=== PATIENT | male | born 1985 | race Caucasian/White ===

== ENCOUNTER 2020-12-18 19:55 | Emergency (ER) | payer OTHER, SELFPAY ==
[2020-12-18 20:19] VITALS: BP 143/86; PULSE 110; RESP 20; TEMP 37.1; O2SAT 98; BMI 36.5
--- NOTE | 2020-12-18 20:41 | HMH.EDUTC ---
[facility] [place] Disposition Clinical Impression: Cellulitis and abscess of leg Disposition: Home, Self-Care Condition on Discharge: Good Instructions: Trimethoprim/Sulfamethoxazole (Alternative Therapy), Cephalexin, Mupirocin, DI for Skin Abscess Additional Instructions: Do not cut on the abscess anymore and allow medication to work *Start antibiotic(s) immediately and be sure to take as ordered for the FULL length of time although you may be feeling better or start to see improvement in the next 24-48 hours *Monitor closely. Outlined redness so that you can monitor easier. Follow up immediately for new or worsening symptoms including but not limited to redness, swelling, streaking from site fever or chills. *Warm compress 15 minutes 3-4 times day *Never squeeze or pop these on your own. Seek immediate medical attention next time this occurs *Monitor Temp. Tylenol every 4 hours as needed and ibuprofen every 6 hours as needed (as long as your primary care doctor has told you that it is ok to take both. For fever, aches, pain. ER if no less that 101 despite Tylenol and ibuprofen Follow up with your family doctor/primary care physician in the next 48-72 hours if no improvement Call [facility] and make appointment with Dr Damian Go straight to the ER if any worsening of redness or swelling, fever chills, streaks coming down leg etc No bandaids over this wound Prescriptions: Sulfamethoxazole/Trimethoprim [Bactrim DS tablet] 1 each PO BID 10 Days #20 tab Transmission Status: Received by [facility] cephALEXin [cephALEXin 500mg capsule*] 500 mg PO Q6H 10 Days #40 cap Transmission Status: Received by [facility] Mupirocin Calcium [Mupirocin 2% Cream 15gm] 1 applicatio TP TID 10 Days #1 tube Transmission Status: Received by [facility] Referrals: PCP,No [Primary Care Provider] - As needed Tin Damian MD [Staff Physician] - As needed (Call office for appointment) Time of Disposition: 20:52 Medical Decision Making - [place] Inquiry Pt receiving controlled substance: No [place] was queried for this patient: No Vital Signs: 12/18/20 20:19 Temperature 98.7 F Temperature Source Tympanic Pulse Rate [Left Brachial] 110 H Respiratory Rate 20 Blood Pressure [Left Arm] 143/86 H Blood Pressure Mean [Left Arm] 105 Blood Pressure Source [Left Arm] Automatic Cuff 02 Sat by Pulse Oximetry 98 Oxygen Delivery Method Room Air Orders (Tests/Meds): ED MEDICATIONS Discontinued Medications Generic Name Dose Route Start Last Admin Trade Name Freq PRN Reason Stop Dose Admin Albuterol Sulfate 2 puffs 12/18/20 20:57 Albuterol-Hfa 90mcg/Puff Inhaler 8gm IH 01/17/21 20:56 Q4HP PRN Shortness Of Breath Albuterol Sulfate 2 puffs 12/18/20 21:03 12/18/20 21:10 Albuterol-Hfa 90mcg/Puff Inhaler 8gm IH 12/18/20 21:04 2 puffs ONCE ONE Administration Cephalexin HCl 500 mg 12/18/20 20:52 12/18/20 20:55 Cephalexin 500mg Capsule PO 12/18/20 20:53 500 mg ONCE ONE Administration Protocol Tetanus/Reduced Diphtheria/Acell Pertussis 0.5 ml 12/18/20 20:41 12/18/20 20:48 Tet/Diphth/Pert-Adult 0.5ml Syringe IM 12/18/20 20:42 0.5 ml .ONCE ONE Administration Trimethoprim/Sulfamethoxazole 1 each 12/18/20 20:52 12/18/20 20:55 Sulfa/Trimethoprim 1 Tablet PO 12/18/20 20:53 1 each ONCE ONE Administration Protocol - Physician Consults Physician Consulted: Rickie Time: 20:46 Reason -: Surgical Eval/Care Comment/Response: Discussed patient with Dr Damian and discussed treatment and patient agreed will leave wound open and Will place patient on oral bactrim DS, Keflex and mupirocin and have patient call office and follow up with Dr Damian next week in the clinic if any worsening return immediately to the ED or call the office [facility] [place] HPI - General Stated complaint: AO 12/18 lac R Leg Time Seen by Provider: 12/18/20 20:41 Mode of Arrival: Family Vehicle So
[2020-12-18 21:25] VITALS: BP 140/85; PULSE 100; RESP 20; TEMP 37
== END 2020-12-18 21:28 | disposition home or self-care (01) ==
PROVIDERS: Emergency Provider Nurse Practitioner
DX: L03.115 Cellulitis of right lower limb (principal); F17.290 Nicotine dependence, other tobacco product, uncomplicated; J45.909 Unspecified asthma, uncomplicated; Z23 Encounter for immunization; Z79.899 Other long term (current) drug therapy
CPT/HCPCS: 90471; 90715; 99202; G0463

== ENCOUNTER → 2021-06-11 11:55 | Outpatient (CLI) | payer OTHER, SELFPAY ==
--- NOTE | 2021-06-11 11:59 | XR_ITS ---
PROCEDURE: XR ANKLE LT MIN 3V CLINICAL INDICATION: ACUTE LT ANKLE PAIN COMPARISON: No exams were available for comparison FINDINGS: No fracture or dislocation. No lytic or blastic change. There is normal mineralization. The joint spaces are well-preserved. No significant degenerative/arthritic changes. No erosive changes evident. Other findings:None. IMPRESSION: No acute findings. Dictated by: Ry Viveros MD 06/11/2021 13:38 Ry Viveros MD in [place] 06/11/2021 13:38
== END ==
PROVIDERS: PCP Family Medicine; Visit Provider Nurse Practitioner Family
DX: M25.572 Pain in left ankle and joints of left foot (principal)
CPT/HCPCS: 73610

== ENCOUNTER 2022-08-05 16:10 | Emergency (ER) | payer OTHER, SELFPAY ==
[2022-08-05 16:11] VITALS: BP 99/59; PULSE 127; RESP 18; TEMP 37.3; O2SAT 95; BMI 34.9
[2022-08-05 16:20] VITALS: BMI 34.9
[2022-08-05 16:25] LABS: Coronavirus 19, PCR Not Detected (NotDetected); Influenza B, PCR Not Detected (NotDetected)
--- NOTE | 2022-08-05 16:29 | HMH.EDGENADL ---
Discharge Plan Disposition Patient Disposition: Home, Self-Care Condition: Good Prescriptions Prescriptions: No Action quetiapine 100 MG tablet 100 mg PO HS buspirone 10 MG tablet 10 mg PO DAILY escitalopram oxalate 5 MG tablet 5 mg PO DAILY sulfamethoxazole-trimethoprim 1 EACH tablet 1 each PO BID 10 Days Qty: 20 0RF cephalexin 500 MG capsule 500 mg PO Q6H 10 Days Qty: 40 0RF mupirocin calcium 15 GM cream 1 applicatio TP TID 10 Days Qty: 1 0RF Referrals Follow up/Referrals: Eliot Sanchez MD [Primary Care Provider] - See instructions Clinical Impressions Clinical Impression: Influenza, Asthma Instructions Patient Instructions: Asthma -- Adult, DI for Influenza -- Adult Discharge ED Provider: Uli Cox General Adult HPI General Chief complaint: Upper Respiratory Infection Stated complaint: SOB fever sore throat Time Seen by Provider: 08/05/22 16:20 History of Present Illness HPI narrative: Patient is a 37-year-old male with a past medical history of asthma requiring intubation twice who presents with concern for shortness of breath. He says that he did a televisit earlier today and got prescribed a Z-Lizandro and steroids but he says that he feels more short of breath and wheezy. He said he was concerned because he has been intubated in the past and did not want to have a bad exacerbation. He says that he has also felt fever and chills. He says he took a home COVID test which was negative. He says that his family members have recently been diagnosed with strep. He denies much sore throat but does state it feels scratchy and he also has a cough. He recently traveled and says that he got sick after this. Denies any chest pain. Denies any abdominal pain. Denies any nausea, vomiting, diarrhea. Related Data Home Medications Medication Instructions Recorded Confirmed buspirone 10 mg tablet 10 mg PO DAILY Anxiety 12/18/20 12/18/20 escitalopram oxalate 5 mg tablet 5 mg PO DAILY Depression 12/18/20 12/18/20 quetiapine 100 mg tablet 100 mg PO HS sleep 12/18/20 12/18/20 Previous Rx's Medication Instructions Recorded cephalexin 500 mg capsule 500 mg PO Q6H 10 days #40 caps 12/18/20 mupirocin calcium 2 % topical cream 1 applicatio TP TID 10 days #1 tube 12/18/20 sulfamethoxazole 800 1 each PO BID 10 days #20 tabs 12/18/20 mg-trimethoprim 160 mg tablet Allergies Allergy/AdvReac Type Severity Reaction Status Date / Time No Known Allergies Allergy Verified 12/18/20 20:29 [facility] Social History Smoking Status: Never smoker alcohol intake: current substance use type: marijuana current occupational status: employed Travel in the last 8 weeks: None household members: significant other ROS Obtained: Yes All systems reviewed & no additional complaints except as documented A 14 point review of system was obtained and otherwise negative except per HPI Physical Exam General General appearance: alert and in no apparent distress Head Head exam: atraumatic, normocephalic and normal inspection Eye Eye exam: Present normal appearance, PERRL and EOMI ENT ENT exam: Present normal exam, normal oropharynx, mucous membranes moist, TM's normal bilaterally and normal external ear exam Neck Neck exam: Present normal inspection, full ROM and trachea midline; Absent meningismus or lymphadenopathy Chest Chest inspection: Present normal inspection and symmetric chest wall rise; Absent tenderness Respiratory Respiratory exam: Present normal lung sounds bilaterally and wheezes; Absent respiratory distress Cardiovascular Cardiovascular exam: Present regular rate and normal rhythm; Absent JVD Abdominal Exam Abdominal exam: Present soft and normal bowel sounds; Absent distention, tenderness or guarding Extremities Exam Extremities exam: Present normal inspection, full ROM and normal capillary refill; Absent calf tenderness Back Exam Back exam: Present nor
--- NOTE | 2022-08-05 16:39 | XR_ITS ---
PROCEDURE INFORMATION: Exam: XR Chest Exam date and time: 08/05/2022 5:05 PM Age: 37 years old Clinical indication: Cough; Additional info: Asthma. Cough TECHNIQUE: Imaging protocol: Radiologic exam of the chest. Views: 1 view. COMPARISON: No relevant prior studies available. FINDINGS: Lungs: No evidence of pneumonia or interstitial edema. Pleural spaces: Unremarkable. No pleural effusion. No pneumothorax. Heart/Mediastinum: Unremarkable. No cardiomegaly. Bones/joints: Unremarkable. IMPRESSION: No evidence of pneumonia or interstitial edema.
[2022-08-05 16:52] LABS: Influenza A, PCR Detected (NotDetected)
[2022-08-05 17:21] VITALS: PULSE 110; PULSE 114
[2022-08-05 17:34] VITALS: BP 110/67; PULSE 78; RESP 20; TEMP 37.2; O2SAT 95
== END 2022-08-05 17:36 | disposition home or self-care (01) ==
PROVIDERS: Emergency Provider Student in an Organized Health Care Education/Training Program; PCP Family Medicine
DX: J10.1 Influenza due to other identified influenza virus with other respiratory manifestations (principal); R06.02 Shortness of breath; R50.9 Fever, unspecified; J45.909 Unspecified asthma, uncomplicated; Z20.822 Contact with and (suspected) exposure to COVID-19
CPT/HCPCS: 71045; 96372; 96374; 96375; 99284; C9803; J3475; U0003; U0005

== ENCOUNTER 2024-10-29 12:13 | Emergency (ER) | payer OTHER, SELFPAY ==
[2024-10-29 12:15] VITALS: BP 110/66; PULSE 89; RESP 18; TEMP 36.6; O2SAT 99; BMI 29.2
--- NOTE | 2024-10-29 12:17 | HMH.EDGENADL ---
Discharge Plan Disposition Patient Disposition: Home, Self-Care Condition: Good Prescriptions Prescriptions: New amoxicillin-pot clavulanate 875-125 mg tablet 1 tab PO BID Qty: 20 0RF No Action quetiapine 100 MG tablet 100 mg PO HS oxcarbazepine 600 mg tablet 600 mg PO DAILY albuterol sulfate 90 mcg/actuation HFA aerosol inhaler 90 mcg INHALATION DAILY lamotrigine 100 mg tablet 100 mg PO DAILY budesonide-formoterol [Breyna] 80-4.5 mcg/actuation HFA aerosol inhaler 2 puff INHALATION DAILY Patient Comments: INHALE 2 PUFFS BY MOUTH TWICE DAILY Referrals Follow up/Referrals: Eliot Sanchez MD [Primary Care Provider] - See instructions Baljeet Lee MD [Referring] - See instructions (Robotic low anterior resection) Activity Restrictions/Add. Instructions Additional Instructions/Restrictions: Please take your antibiotic till its gone. Please follow-up with your PCP if you have any new unchanged or worsening signs or symptoms or return to the ER as needed. I referred you to Dr. Baljeet Lee robotic surgeon at [facility]. Please call in the morning to make your appointment. Clinical Impressions Clinical Impression: Diverticulitis of sigmoid colon Instructions Patient Instructions: DI for Acute Abdominal Pain Print Language Print Language: Kinyarwanda Discharge ED Provider: Zev Vaz General Adult HPI <NIDA Mojica - Last Filed: 10/29/24 15:17> General Chief complaint: Abdominal Pain Stated complaint: abd pain-diverticulitis Time Seen by Provider: 10/29/24 12:17 History of Present Illness HPI narrative: Patient presents for evaluation of left lower quadrant abdominal pain. Patient states that he has a long history of diverticulitis. He actually suffered a microperforation in 2017 and spent a week in the hospital. He continues to have periods of flares of his diverticulitis every 2 to 3 months. However he began having symptoms 2 to 3 days ago and this time it hurts more than it usually does and it is reminiscent of the time that he perforated before. He denies fever chills hemoptysis hematochezia melena he has nausea but no vomiting or diarrhea. He is passing gas and stool. He cannot tolerate oral intake but it makes it hurt more. Related Data Home Medications ?Medication ?Instructions ?Recorded ?Confirmed quetiapine 100 mg tablet 100 mg PO HS sleep 12/18/20 10/29/24 albuterol sulfate 90 mcg/actuation 90 mcg inhalation DAILY 10/29/24 10/29/24 aerosol inhaler budesonide-formoterol HFA 80 2 puff inhalation DAILY 10/29/24 10/29/24 mcg-4.5 mcg/actuation aerosol inhaler (Breyna) lamotrigine 100 mg tablet 100 mg PO DAILY 10/29/24 10/29/24 oxcarbazepine 600 mg tablet 600 mg PO DAILY 10/29/24 10/29/24 Previous Rx's ?Medication ?Instructions ?Recorded amoxicillin 875 mg-potassium 1 tab PO BID #20 tabs 10/29/24 clavulanate 125 mg tablet Allergies Allergy/AdvReac Type Severity Reaction Status Date / Time No Known Allergies Allergy Verified 10/29/24 13:51 PFSH <NIDA Mojica - Last Filed: 10/29/24 15:17> PFS Disclaimer: The information contained in this section may have been updated after the patient was seen, as this information can be updated by other users. Social History Smoking Status: Former smoker tobacco type: smokeless tobacco alcohol intake: current alcohol intake frequency: a few times a month substance use type: marijuana current occupational status: employed Travel in the last 8 weeks: None household members: significant other Have you lived/traveled outside [place] in past 30 days?: No Contact w/someone who lives/traveled outside US past 30 days?: No Exposure to someone with infectious disease in past 14 days?: No Do you have a fever (greater than 100.4 F or 38 C)?: No Have you tested positive for COVID-19: No Exposed to someone with COVID-19 in past 14 days?: No Do you have a sore throat?: No Do you have a cough?: No Do you have any weakness?: No Do you have any diarrhea?: No Are you experiencing any unusual bleeding?: No Do you have any muscle aches/pain?: No Do you have any abdominal pain?: No Are you experiencing loss of taste or smell?: No <NIDA Mojica - Last Filed: 10/29/24 15:17> ROS Obtained: Yes Systems reviewed as appropriate & no additional complaints except as documented Physical Exam <NIDA Mojica - Last Filed: 10/29/24 15:17> General General appearance: alert and in no apparent distress Respiratory Respiratory exam: Present normal lung sounds bilaterally Cardiovascular Cardiovascular exam: Present regular rate Neurological Exam Neurological exam: Present alert and oriented X3 Medical Decision Making <NIDA Mojica - Last Filed: 10/29/24 15:17> Medical Records Medical records reviewed: Yes I reviewed the patient's medical records. Screening: Per USPSTF and CDC recommendations, given the prevalence of disease in our region, it is our hospital?s policy to screen for HIV and viral Hepatitis for all patients aged 18 and over and those with ongoing risk factors. [place] Inquiry Pt receiving controlled substance: No Vital Signs: 10/29/24 12:15 10/29/24 13:01 10/29/24 13:58 Temperature 97.9 F Temperature Source Oral Pulse Rate 86 89 Pulse Rate [Radial] 89 Respiratory Rate 18 18 Blood Pressure 101/74 L Blood Pressure [Left Arm] 110/66 Blood Pressure Mean [Left Arm] 80 Blood Pressure Source Blood Pressure Source [Left Arm] Automatic Cuff Blood Pressure Position Blood Pressure Position [Left Arm] Sitting 02 Sat by Pulse Oximetry 99 98 99 Oxygen Delivery Method Room Air Room Air 10/29/24 15:50 Temperature 98.2 F Temperature Source Oral Pulse Rate 84 Pulse Rate [Radial] Respiratory Rate 18 Blood Pressure 120/70 Blood Pressure [Left Arm] Blood Pressure Mean [Left Arm] Blood Pressure Source Automatic Cuff Blood Pressure Source [Left Arm] Blood Pressure Position Sitting Blood Pressure Position [Left Arm] 02 Sat by Pulse Oximetry Oxygen Delivery Method Room Air Lab Data Lab results reviewed: Yes I reviewed the patient's lab results. Lab Results 10/29/24 12:30: WBC 10.6, RBC 4.79, Hgb 14.6, Hct 41.9 L, MCV 87.5, MCH 30.5, MCHC 34.8, RDW 12.9, Plt Count 240, MPV 9.3, Neut % (Auto) 68.6, Lymph % (Auto) 16.0, Kend[place] % (Auto) 9.7 H, Eos % (Auto) 4.9, Baso % (Auto) 0.5, Neut # (Auto) 7.3, Lymph # (Auto) 1.7, Kendall # (Auto) 1.0, Eos # (Auto) 0.5 H, Baso # (Auto) 0.1, Sodium 139, Potassium 4.3, Chloride 103, Carbon Dioxide 29, Anion Gap 11.3, BUN 9, Creatinine 0.70, Estimated Creat Clear 214, Estimated GFR 124, Est GFR ( Amer) 150, Glucose 108 H, Calcium 9.8, Magnesium 2.1, Total Bilirubin 1.2, AST 30, ALT 44, Alkaline Phosphatase 70, Total Protein 7.1, Albumin 4.7, Globulin 2.4, Albumin/Globulin Ratio 2.0 H, Procalcitonin 0.072, HCV Ab JOLIE w/Rflx PCR Qn Negative, HIV Ag/Ab Combo Qual Negative 10/29/24 13:00: Urine Color Yellow, Urine Appearance Clear, Urine pH 6.5, Ur Specific [place] 1.020, Urine Protein Negative, Urine Glucose (UA) Negative, Urine Ketones Negative, Urine Blood Negative, Urine Nitrate Negative, Urine Bilirubin Negative, Urine Urobilinogen 0.2, Ur Leukocyte Esterase Negative, Urine RBC 5-10, Urine WBC Occasional, Ur Squamous Epith Cells 10-20, Urine Bacteria Trace 10/29/24 12:30 10/29/24 12:30 Orders (Tests/Meds): ED MEDICATIONS Discontinued Medications Generic Name Dose Route Start Last Admin Trade Name Shaylee PRN Reason Stop Dose Admin Hydromorphone HCl 0.5 mg 10/29/24 13:23 10/29/24 13:26 Hydromorphone 2mg/Ml Syringe IV 10/29/24 13:24 0.5 mg ONCE ONE Administration Hydromorphone HCl 1 mg 10/29/24 15:13 10/29/24 15:30 Hydromorphone 2mg/Ml Syringe IV 10/29/24 15:14 1 mg ONCE ONE Administration Iopamidol 75 ml 10/29/24 13:31 10/29/24 13:32 Iopamidol-370 (76%);100ml Bottle IV 10/29/24 13:32 75 ml ONCE ONE Administration Ondansetron HCl 4 mg 10/29/24 12:36 10/29/24 12:47 Ondansetron 4mg/2ml Vial IV 10/29/24 12:37 Not Given ONCE ONE Ondansetron HCl 4 mg 10/29/24 13:23 10/29/24 13:26 Ondansetron 4mg/2ml Vial IV 10/29/24 13:24 4 mg ONCE ONE Administration Sodium Chloride 10 ml 10/29/24 13:31 10/29/24 13:32 Sodium Chloride 0.9% 10ml Syr (Rad Only) IV 10/29/24 13:32 10 ml ONCE ONE Administration ORDERS Category Date Time Status CT abdomen pelvis w con Stat Cat Scan 10/29/24 12:36 Completed CBC w/Auto Diff [Complete Blood Count Auto Diff] Stat Lab 10/29/24 12:30 Completed CMP [Comprehensive Metabolic Panel] Stat Lab 10/29/24 12:30 Completed HIV Combo Stat Lab 10/29/24 12:30 Completed Hepatitis C Ab Qual. W/ RFX Stat Lab 10/29/24 12:30 Completed Magnesium Stat Lab 10/29/24 12:30 Completed Procalcitonin Stat Lab 10/29/24 12:30 Completed UA [Urinalysis and Microscopic] Stat Lab 10/29/24 13:00 Completed Medical Decision Narrative: In summary patient is a 39-year-old male who presents to the emergency department for evaluation of left lower quadrant abdominal pain. Patient is initially normotensive at 110/66 pulse 89 respiratory rate 18 O2 sats 99% on room air upon arrival, he is currently afebrile at 97.9. Physical exam is remarkable for a well-nourished well-developed 39-year-old gentleman who appears to be in no acute distress and nontoxic. Patient is tender to palpation in the left lower quadrant but there is no rebound or guarding or rigidity. Patient rates his pain at 5-6 out of 10. Bowel sounds normal active.. Differential diagnosis includes diverticulitis versus hollow viscus perforation. Initial workup will be conducted with hematologic labs urinalysis CT scan abdomen pelvis. Initial interventions include Zofran single dose of IV 0.5 mg Dilaudid. Initial workup reviewed by me and his hematologic labs are reassuring with no elevation white count no left shift and the remainder of his laboratory investigations being nonactionable. My informal interpretation of his CT scan abdomen pelvis shows significant stranding around the sigmoid colon but no perforation free air or free fluid.. Upon repeat evaluation patient had moderate improvement in his discomfort and is tolerating oral intake.. Given this patient is appropriate discharge with continued prescription for Augmentin and referral to colorectal surgery for evaluation of resection of that disease section of bowel with strict return precautions. <Zev Vaz MD - Last Filed: 10/31/24 15:12> Vital Signs: 10/29/24 12:15 10/29/24 13:01 10/29/24 13:58 Temperature 97.9 F Temperature Source Oral Pulse Rate 86 89 Pulse Rate [Radial] 89 Respiratory Rate 18 18 Blood Pressure 101/74 L Blood Pressure [Left Arm] 110/66 Blood Pressure Mean [Left Arm] 80 Blood Pressure Source Blood Pressure Source [Left Arm] Automatic Cuff Blood Pressure Position Blood Pressure Position [Left Arm] Sitting 02 Sat by Pulse Oximetry 99 98 99 Oxygen Delivery Method Room Air Room Air 10/29/24 15:50 Temperature 98.2 F Temperature Source Oral Pulse Rate 84 Pulse Rate [Radial] Respiratory Rate 18 Blood Pressure 120/70 Blood Pressure [Left Arm] Blood Pressure Mean [Left Arm] Blood Pressure Source Automatic Cuff Blood Pressure Source [Left Arm] Blood Pressure Position Sitting Blood Pressure Position [Left Arm] 02 Sat by Pulse Oximetry Oxygen Delivery Method Room Air Lab Data Lab Results 10/29/24 12:30: WBC 10.6, RBC 4.79, Hgb 14.6, Hct 41.9 L, MCV 87.5, MCH 30.5, MCHC 34.8, RDW 12.9, Plt Count 240, MPV 9.3, Neut % (Auto) 68.6, Lymph % (Auto) 16.0, Kend[place] % (Auto) 9.7 H, Eos % (Auto) 4.9, Baso % (Auto) 0.5, Neut # (Auto) 7.3, Lymph # (Auto) 1.7, Kendall # (Auto) 1.0, Eos # (Auto) 0.5 H, Baso # (Auto) 0.1, Sodium 139, Potassium 4.3, Chloride 103, Carbon Dioxide 29, Anion Gap 11.3, BUN 9, Creatinine 0.70, Estimated Creat Clear 214, Estimated GFR 124, Est GFR ( Amer) 150, Glucose 108 H, Calcium 9.8, Magnesium 2.1, Total Bilirubin 1.2, AST 30, ALT 44, Alkaline Phosphatase 70, Total Protein 7.1, Albumin 4.7, Globulin 2.4, Albumin/Globulin Ratio 2.0 H, Procalcitonin 0.072, HCV Ab JOLIE w/Rflx PCR Qn Negative, HIV Ag/Ab Combo Qual Negative 10/29/24 13:00: Urine Color Yellow, Urine Appearance Clear, Urine pH 6.5, Ur Specific [place] 1.020, Urine Protein Negative, Urine Glucose (UA) Negative, Urine Ketones Negative, Urine Blood Negative, Urine Nitrate Negative, Urine Bilirubin Negative, Urine Urobilinogen 0.2, Ur Leukocyte Esterase Negative, Urine RBC 5-10, Urine WBC Occasional, Ur Squamous Epith Cells 10-20, Urine Bacteria Trace Orders (Tests/Meds): ED MEDICATIONS Discontinued Medications Generic Name Dose Route Start Last Admin Trade Name Freq PRN Reason Stop Dose Admin Hydromorphone HCl 0.5 mg 10/29/24 13:23 10/29/24 13:26 Hydromorphone 2mg/Ml Syringe IV 10/29/24 13:24 0.5 mg ONCE ONE Administration Hydromorphone HCl 1 mg 10/29/24 15:13 10/29/24 15:30 Hydromorphone 2mg/Ml Syringe IV 10/29/24 15:14 1 mg ONCE ONE Administration Iopamidol 75 ml 10/29/24 13:31 10/29/24 13:32 Iopamidol-370 (76%);100ml Bottle IV 10/29/24 13:32 75 ml ONCE ONE Administration Ondansetron HCl 4 mg 10/29/24 12:36 10/29/24 12:47 Ondansetron 4mg/2ml Vial IV 10/29/24 12:37 Not Given ONCE ONE Ondansetron HCl 4 mg 10/29/24 13:23 10/29/24 13:26 Ondansetron 4mg/2ml Vial IV 10/29/24 13:24 4 mg ONCE ONE Administration Sodium Chloride 10 ml 10/29/24 13:31 10/29/24 13:32 Sodium Chloride 0.9% 10ml Syr (Rad Only) IV 10/29/24 13:32 10 ml ONCE ONE Administration ORDERS Category Date Time Status CT abdomen pelvis w con Stat Cat Scan 10/29/24 12:36 Completed CBC w/Auto Diff [Complete Blood Count Auto Diff] Stat Lab 10/29/24 12:30 Completed CMP [Comprehensive Metabolic Panel] Stat Lab 10/29/24 12:30 Completed HIV Combo Stat Lab 10/29/24 12:30 Completed Hepatitis C Ab Qual. W/ RFX Stat Lab 10/29/24 12:30 Completed Magnesium Stat Lab 10/29/24 12:30 Completed Procalcitonin Stat Lab 10/29/24 12:30 Completed UA [Urinalysis and Microscopic] Stat Lab 10/29/24 13:00 Completed Medical Decision Narrative: In summary patient is a 39-year-old male who presents to the emergency department for evaluation of left lower quadrant abdominal pain. Patient is initially normotensive at 110/66 pulse 89 respiratory rate 18 O2 sats 99% on room air upon arrival, he is currently afebrile at 97.9. Physical exam is remarkable for a well-nourished well-developed 39-year-old gentleman who appears to be in no acute distress and nontoxic. Patient is tender to palpation in the left lower quadrant but there is no rebound or guarding or rigidity. Patient rates his pain at 5-6 out of 10. Bowel sounds normal active.. Differential diagnosis includes diverticulitis versus hollow viscus perforation. Initial workup will be conducted with hematologic labs urinalysis CT scan abdomen pelvis. Initial interventions include Zofran single dose of IV 0.5 mg Dilaudid. Initial workup reviewed by me and his hematologic labs are reassuring with no elevation white count no left shift and the remainder of his laboratory investigations being nonactionable. My informal interpretation of his CT scan abdomen pelvis shows significant stranding around the sigmoid colon but no perforation free air or free fluid.. Upon repeat evaluation patient had moderate improvement in his discomfort and is tolerating oral intake.. Given this patient is appropriate discharge with continued prescription for Augmentin and referral to colorectal surgery for evaluation of resection of that disease section of bowel with strict return precautions. I was consulted by the DONAVAN, and we discussed the complexity of the problems being addressed. I approved the treatment and management plan for this patient's care in the Emergency Department, thus performing a substantive portion of the medical decision making. Zev Vaz MD Critical Care <NIDA Mojica - Last Filed: 10/29/24 15:17> Critical Care Time Critical Care Time: Yes Attestation: On 10/29/24, the high probability of a clinically significant, sudden or life threatening deterioration of the following system(s) required my full and direct attention, intervention and personal management. The time I documented below is in addition to time spent performing reported procedures but includes the following listed in this critical care notation. Total Time Total Critical Care Time: 35
--- NOTE | 2024-10-29 12:36 | CT_ITS ---
FINAL REPORT TECHNIQUE: After the administration of oral and intravenous contrast, axial images were obtained through the abdomen and pelvis by computed tomography. The study was performed with techniques to keep radiation dose as low as reasonably achievable, (ALARA). Individual dose reduction techniques using automated exposure control or adjustment of mA and/or kV according to the patient's size were employed. CLINICAL HISTORY: abd pian COMPARISON: None FINDINGS: Abdomen: The lung bases are clear. The liver parenchyma is homogeneous. The gallbladder is present. The pancreas, adrenals and kidneys appear unremarkable. The spleen is mildly enlarged, measuring up to 17 cm. The aorta is normal in caliber. There is no free fluid or adenopathy. Pelvis: The appendix is not identified. There is extensive inflammatory reaction in the mid to distal sigmoid colon, most severe seen surrounding a diverticulum in the sigmoid colon, best visualized on image #123 of series 3. The appearance is consistent with uncomplicated diverticulitis. No evidence of abscess or free air is seen. The bladder is incompletely distended. There is minimal free fluid present in the pelvis. IMPRESSION: Extensive inflammatory reaction in the mid and distal sigmoid colon, most severe seen surrounding a diverticulum, best visualized on image 123 of series 3. The overall appearance is consistent with uncomplicated diverticulitis. Minimal free fluid is present in the pelvis. Mild splenomegaly. Reviewed, Interpreted and Dictated by Juan A Bustamante MD Transcribed by Erna Mir Authenticated and [facility]
--- NOTE | 2024-10-29 12:39 | PC.NURSE ---
PT AMBULATORY TO ROOM 8, PT PLACED IN GOWN, WARM BLANKET PROVIDED. CALL LIGHT WITHIN REACH. FAMILY AT BEDSIDE
[2024-10-29 12:49] LABS: Basophils # 0.1 K/mm3 (0-0.2); Basophils % 0.5 % (0.1-2.0); Eosinophils # 0.5 K/mm3 (0.0-0.4); Eosinophils % 4.9 % (0.1-12.0); Hematocrit 41.9 % (42.0-52.0); Hemoglobin 14.6 g/dL (14.1-18.0); Lymphocytes # 1.7 K/mm3 (0.7-4.5); Mean Corpuscular HGB Conc 34.8 g/dL (31.8-35.4); Mean Corpuscular Hemoglobin 30.5 pg (27.0-31.2); Mean Corpuscular Volume 87.5 fl (80-94); Mean Platelet Volume 9.3 fl (7.4-10.4); Monocytes % 9.7 % (1.7-9.3); Neutrophils # 7.3 K/mm3 (1.8-7.8); Neutrophils % 68.6 % (37.0-80.0); Platelet Count 240 K/mm3 (142-424); Red Blood Count 4.79 M/mm3 (4.60-6.20); Red Cell Distribution Width 12.9 % (11.5-17.5); White Blood Count 10.6 K/mm3 (4.8-10.8)
--- NOTE | 2024-10-29 12:49 | PC.NURSE ---
Pt ambulates to the bathroom with a steady gate to provide urine sample.
[2024-10-29 13:01] VITALS: PULSE 86; RESP 18; O2SAT 98
[2024-10-29 13:07] LABS: Alanine Aminotransferase 44 U/L (12-78); Albumin Level 4.7 g/dl (3.5-5.0); Alkaline Phosphatase 70 U/L (38-126); Anion Gap 11.3 mEq/L (5-15); Aspartate Amino Transferase 30 U/L (17-59); Bilirubin,Total 1.2 mg/dl (0.2-1.3); Blood Urea Nitrogen 9 mg/dl (9-20); Calcium 9.8 mg/dl (8.4-10.2); Carbon Dioxide 29 mmol/L (22.0-30.0); Chloride 103 mmol/L (98-107); Creatinine Clearance Estimated 214 mL/min (50-200); Estimated Glomerular Filt Rate 124 ml/min (>60); GFR (African American) 150 ML/MIN (>60); Globulin 2.4 g/dL (1.3-3.2); Glucose 108 mg/dl (74-100); Magnesium 2.1 mg/dl (1.6-2.3); Potassium 4.3 mmoL/L (3.5-5.1); Sodium 139 mmol/L (136-145); Total Protein,Serum 7.1 g/dl (6.3-8.2)
[2024-10-29 13:10] LABS: Microscopic, Urine URINE MICROSCOPIC (MICROSCOPIC)
[2024-10-29 13:24] LABS: Procalcitonin 0.072 ng/mL (0.0-2.0)
[2024-10-29] MEDS: HYDROMORPHONE 2MG/ML SYRINGE 0.5 MG IV (13:26)
[2024-10-29] MEDS: ONDANSETRON 4MG/2ML VIAL 4 MG IV (13:26)
[2024-10-29 13:28] LABS: Appearance,Urine CLEAR (Clear); Bilirubin,Urine Negative (Negative); Blood, Urine Negative (Negative); Color,Urine YELLOW (Yellow); Glucose,Urine (UA) Negative (Negative); Ketones,Urine Negative (Negative); Leukocyte Esterase,Urine Negative (Negative); Nitrate,Urine Negative (Negative); PH,Urine 6.5 (5.0-8.5); Protein,Urine Negative (Negative); Urobilinogen,Urine 0.2 EU/dl (0.2)
[2024-10-29] MEDS: SODIUM CHLORIDE 0.9% 10ML SYR (RAD ONLY) 10 ML IV (13:32)
[2024-10-29] MEDS: IOPAMIDOL-370 (76%);100ML BOTTLE 75 ML IV (13:32)
--- NOTE | 2024-10-29 13:32 | PC.NURSE ---
PT GONE TO CT
[2024-10-29 13:44] LABS: WBC,Urine Occasional #/hpf (0-3)
[2024-10-29 13:45] LABS: Bacteria,Urine Trace /lpf
[2024-10-29 13:58] VITALS: BP 101/74; PULSE 89; O2SAT 99
--- NOTE | 2024-10-29 14:02 | PC.NURSE ---
vital signs reassessed. PT states pain has improved at this time, denies any needs at this time.
[2024-10-29] MEDS: HYDROMORPHONE 2MG/ML SYRINGE 1 MG IV (15:30)
[2024-10-29 15:44] LABS: HIV Combo NEGATIVE (Negative)
[2024-10-29 15:50] VITALS: BP 120/70; PULSE 84; RESP 18; TEMP 36.8; O2SAT 99
[2024-10-29 15:52] LABS: Hepatitis C Ab Qual. W/ RFX NEGATIVE (Negative)
== END 2024-10-29 15:50 | disposition home or self-care (01) ==
PROVIDERS: Physician Assistant; Emergency Provider Emergency Medicine; PCP Family Medicine
DX: K57.32 Diverticulitis of large intestine without perforation or abscess without bleeding (principal); R10.32 Left lower quadrant pain; R11.0 Nausea; R63.8 Other symptoms and signs concerning food and fluid intake; Z87.891 Personal history of nicotine dependence
CPT/HCPCS: 74177; 80053; 81001; 83735; 84145; 85025; 86803; 87389; 96374; 96375; 99285; J1171; J2405; Q9967

== ENCOUNTER 2025-02-12 10:32 | Emergency (ER) | payer OTHER, SELFPAY ==
[2025-02-12 10:38] VITALS: BP 122/96; PULSE 110; O2SAT 97
[2025-02-12 10:42] VITALS: BP 122/96; PULSE 106; RESP 16; O2SAT 99; BMI 29.2
--- NOTE | 2025-02-12 10:49 | XR_ITS ---
FINAL REPORT CLINICAL HISTORY: Shortness of breath COMPARISON: 08/05/2022 FINDINGS: A single view of the chest was obtained. No acute pulmonary opacity is present. There is no evidence of effusion or pneumothorax. Mediastinum is unremarkable. Heart size is normal. IMPRESSION: No acute abnormality. Reviewed, Interpreted and Dictated by Epifanio Stone MD Transcribed by Maribel Richardson Authenticated and [facility]
--- NOTE | 2025-02-12 10:49 | CT_ITS ---
FINAL REPORT TECHNIQUE: IV contrast enhanced exam This study was performed with techniques to keep radiation doses as low as reasonably achievable, (ALARA). Individualized dose reduction techniques using automated exposure control or adjustment of mA and/or kV according to the patient''s size were employed. CLINICAL HISTORY: RUQ pain, nausea and vomiting hx of ileus last wee COMPARISON: 10/29/2024 FINDINGS: Abdomen: Lung bases are clear. The gallbladder is unremarkable. Liver has an unremarkable CT appearance. There is stable, mild splenomegaly. Pancreas and adrenal glands are unremarkable. Gallbladder is present. Kidneys show no mass or obstruction. Fluid-filled, borderline distended small bowel is seen in a pattern which may be seen with ileus or enteritis. Pelvis: The appendix is is normal. There has been interval resolution of previously seen diverticulitis. There is moderate sigmoid diverticulosis. Prostate is unremarkable. Pelvic bowel loops are unremarkable. No fluid collection or adenopathy is seen. IMPRESSION: Fluid-filled small bowel in a pattern suggestive of ileus or enteritis. Reviewed, Interpreted and Dictated by Epifanio Stone MD Transcribed by Sally Hernandez Authenticated and . [facility]
[2025-02-12 11:00] VITALS: BP 119/81; PULSE 109; O2SAT 97
--- NOTE | 2025-02-12 11:02 | ED_ITS ---
<Statement entered by Silvia Patel DO - 02/12/25 15:01> I was consulted by the DONAVAN, and we discussed the complexity of the problems being addressed. I approved the treatment and management plan for this patient's care in the emergency department, thus performing a substantive portion of the medical decision making. Silvia Patel DO Discharge Plan Disposition Patient Disposition: Home, Self-Care Condition: Good Chief Complaint: Abdominal Pain Prescriptions Prescriptions: No Action prednisone 20 mg tablet 20 mg PO BID Qty: 10 0RF indomethacin 50 mg capsule 50 mg PO TID 7 Days Qty: 21 0RF Rx Instructions: administer with food or milk quetiapine 100 MG tablet 100 mg PO HS oxcarbazepine 600 mg tablet 600 mg PO DAILY albuterol sulfate 90 mcg/actuation HFA aerosol inhaler 90 mcg INHALATION DAILY lamotrigine 100 mg tablet 100 mg PO DAILY budesonide-formoterol [Breyna] 80-4.5 mcg/actuation HFA aerosol inhaler 2 puff INHALATION DAILY Patient Comments: INHALE 2 PUFFS BY MOUTH TWICE DAILY Referrals Follow up/Referrals: Chana Ritter PA [Primary Care Provider] - See instructions Activity Restrictions/Add. Instructions Additional Instructions/Restrictions: Please return to the emergency department with any worsening signs or symptoms, any intractable nausea vomiting worsening abdominal pain, or if there is no bowel movement in the next 24 to 48 hours. Please progress diet as tolerated, please use antinausea medication as needed at home, and medications as needed at home. Please follow-up with your PCP, GI doctor or surgery physician in the upcoming days/weeks Clinical Impressions Clinical Impression: Ileus Instructions Patient Instructions: DI for Acute Abdominal Pain, DI for Ileus Print Language Print Language: Finnish Discharge ED Provider: Silvia Patel General Adult HPI <NIDA Rick - Last Filed: 02/12/25 13:51> General Chief complaint: Abdominal Pain Stated complaint: Upper Right Quad Pain Time Seen by Provider: 02/12/25 10:40 Mode of Arrival: Ambulatory Source of Information: Patient Description of Symptoms (Recalled from ER Triage Doc. by RN): patient states he was diagnosed with an obstructing illeus on last tuesday, ate pizza lastnight and he is now having ruq pain that is constant 6/10 with nausea and weakness History of Present Illness HPI narrative: 39-year-old male presents to the emergency department 7 to 8-day history of epigastric/RUQ abdominal pain, nausea vomiting, constipation and diarrhea was seen at outside facility on Tuesday of last week, diagnosed with an ileus versus evolving obstruction, was recommended bowel regimen/bowel rest, patient has been doing this as prescribed which includes laxatives, high-fiber diet, he has had some improvement of his symptoms until today when he was at work, when he started feeling nauseous and weak , along with some abdominal pain, currently rates his pain 6 out of 10. Patient denies any fever chills chest pain shortness of breath, constipation, no urinary type symptomatology, no hematuria melena hematochezia hematemesis, no further episodes of vomiting today, does complain of nausea and episode of diarrhea/less formed stool today, other past medical history consistent with asthma, diverticulosis, with multiple episodes of diverticulitis in the past, with diverticulitis/perforation, that he has slated with surgery team, for possible bowel resection in the near future, other PMH consistent with bipolar disorder, patient is a non-smoker, admits to occasional marijuana use, patient alcohol use, no other drug use. Initial triage vitals notable tachycardia otherwise unremarkable. Onset (ago): week(s) Related Data Home Medications ?Medication ?Instructions ?Recorded ?Confirmed quetiapine 100 mg tablet 100 mg PO HS sleep 12/18/20 12/29/24 albuterol sulfate 90 mcg/actuation 90 mcg inhalation DAILY 10/29/24 12/29/24 aerosol inhaler budesonide-formoterol HFA 80 2 puff inhalation DAILY 10/29/24 12/29/24 mcg-4.5 mcg/actuation aerosol inhaler (Breyna) lamotrigine 100 mg tablet 100 mg PO DAILY 10/29/24 12/29/24 oxcarbazepine 600 mg tablet 600 mg PO DAILY 10/29/24 12/29/24 Previous Rx's ?Medication ?Instructions ?Recorded indomethacin 50 mg capsule 50 mg PO TID 7 days #21 caps 12/29/24 prednisone 20 mg tablet 20 mg PO BID #10 tabs 12/29/24 Allergies Allergy/AdvReac Type Severity Reaction Status Date / Time No Known Allergies Allergy Verified 12/29/24 11:38 PFS <NIDA Rick - Last Filed: 02/12/25 13:51> PFSH Disclaimer: The information contained in this section may have been updated after the patient was seen, as this information can be updated by other users. Social History Smoking Status: Current every day smoker tobacco type: smokeless tobacco alcohol intake: current alcohol intake frequency: a few times a month substance use type: marijuana current occupational status: employed Travel in the last 8 weeks?: None household members: significant other Have you lived/traveled outside [place] in past 30 days?: No Contact w/someone who lives/traveled outside US past 30 days?: No Exposure to someone with infectious disease in past 14 days?: No Do you have a fever (greater than 100.4 F or 38 C)?: No Have you tested positive for COVID-19?: No Exposed to someone with COVID-19 in past 14 days?: No Do you have a sore throat?: No Do you have a cough?: No Do you have any weakness?: No Do you have any diarrhea?: No Are you experiencing any unusual bleeding?: No Do you have any muscle aches/pain?: No Do you have any abdominal pain?: Yes Are you experiencing loss of taste or smell?: No <NIDA Rick - Last Filed: 02/12/25 13:51> ROS Obtained: Yes All systems reviewed & no additional complaints except as documented Physical Exam <NIDA Rick - Last Filed: 02/12/25 13:51> General General appearance: alert and in no apparent distress Head Head exam: atraumatic and normocephalic Eye Eye exam: Present PERRL and EOMI ENT ENT exam: Present mucous membranes moist Neck Neck exam: Present normal inspection Chest Chest inspection: Present normal inspection and symmetric chest wall rise Respiratory Respiratory exam: Present normal lung sounds bilaterally; Absent respiratory distress Cardiovascular Cardiovascular exam: Present regular rate and normal rhythm Abdominal Exam Abdominal exam: Present soft and tenderness; Absent guarding, rebound or rigidity Abdominal tenderness: Present RUQ, epigastrium and mild Comment: There is mild RUQ pain and midepigastrium pain/tenderness to palpation. Extremities Exam Extremities exam: Present normal inspection Neurological Exam Neurological exam: Present alert and oriented X3 Psychiatric Psychiatric exam: Present normal affect Skin Skin exam: Present warm and dry Medical Decision Making <NIDA Rick - Last Filed: 02/12/25 13:51> Medical Records Medical records reviewed: Yes I reviewed the patient's medical records. Screening: Per USPSTF and CDC recommendations, given the prevalence of disease in our region, it is our hospital?s policy to screen for HIV and viral Hepatitis for all patients aged 18 and over and those with ongoing risk factors. [place] Inquiry Pt receiving controlled substance: No [place] was queried for this patient: No Vital Signs: 02/12/25 10:38 02/12/25 10:42 02/12/25 11:00 Pulse Rate 110 H 109 H Pulse Rate [Right Radial] 106 H Respiratory Rate 16 Blood Pressure 122/96 H 119/81 Blood Pressure [Left Arm] 122/96 H Blood Pressure Mean [Left Arm] 104 Blood Pressure Source [Left Arm] Automatic Cuff Blood Pressure Position [Left Arm] Sitting 02 Sat by Pulse Oximetry 97 99 97 Oxygen Delivery Method Room Air Room Air Room Air 02/12/25 12:01 Pulse Rate 89 Pulse Rate [Right Radial] Respiratory Rate Blood Pressure 117/80 Blood Pressure [Left Arm] Blood Pressure Mean [Left Arm] Blood Pressure Source [Left Arm] Blood Pressure Position [Left Arm] 02 Sat by Pulse Oximetry 98 Oxygen Delivery Method Room Air Lab Data Lab Results 02/12/25 10:49: WBC 13.8 H, RBC 5.32, Hgb 16.2, Hct 45.8, MCV 86.1, MCH 30.5, MCHC 35.4, RDW 13.3, Plt Count 321, MPV 9.7, Neut % (Auto) 77.4, Lymph % (Auto) 8.5 L, Lewis % (Auto) 7.1, Eos % (Auto) 6.2, Baso % (Auto) 0.6, Neut # (Auto) 10.7 H, Lymph # (Auto) 1.2, Lewis # (Auto) 1.0, Eos # (Auto) 0.9 H, Baso # (Auto) 0.1, PT 10.8, INR 0.97, Sodium 141, Potassium 4.4, Chloride 111 H, Carbon Dioxide 22, Anion Gap 12.4, BUN 10, Creatinine 0.90, Estimated Creat Clear 166, Estimated GFR 93, Est GFR ( Amer) 113, Glucose 125 H, Lactate 1.4, C alcium 10.7 H, Magnesium 2.1, Total Bilirubin 0.4, AST 31, ALT 48, Alkaline Phosphatase 73, Troponin I < 0.01, NT-Pro-B Natriuret Pep < 20.0, Total Protein 7.8, Albumin 5.1 H, Globulin 2.7, Albumin/Globulin Ratio 1.9 H, Lipase 76 02/12/25 10:49 02/12/25 10:49 Orders (Tests/Meds): ED MEDICATIONS Discontinued Medications Generic Name Dose Route Start Last Admin Trade Name Freq PRN Reason Stop Dose Admin Hydromorphone HCl 0.5 mg 02/12/25 12:09 02/12/25 12:12 Hydromorphone 2mg/Ml Syringe IV 02/12/25 12:10 0.5 mg ONCE ONE Administration Iopamidol 75 ml 02/12/25 11:40 02/12/25 11:42 Iopamidol-370 (76%);100ml Bottle IV 02/12/25 11:41 75 ml ONCE ONE Administration Morphine Sulfate 4 mg 02/12/25 11:01 02/12/25 11:06 Morphine 4mg/Ml Syringe IV 02/12/25 11:02 4 mg ONCE ONE Administration Ondansetron HCl 4 mg 02/12/25 11:01 02/12/25 11:05 Ondansetron 4mg/2ml Vial IV 02/12/25 11:02 4 mg ONCE ONE Administration Sodium Chloride 10 ml 02/12/25 11:40 02/12/25 11:41 Sodium Chloride 0.9% 10ml Syr (Rad Only) IV 02/12/25 11:41 10 ml ONCE ONE Administration ORDERS Category Date Time Status CT abdomen pelvis w con Stat Cat Scan 02/12/25 10:49 Completed US RUQ [US abdomen limited] Stat Exams 02/12/25 12:33 Completed XR chest portable Stat Exams 02/12/25 10:49 Completed Complete Blood Count Auto Diff Stat Lab 02/12/25 10:49 Completed Comprehensive Metabolic Panel Stat Lab 02/12/25 10:49 Completed Lactic Acid Stat Lab 02/12/25 10:49 Completed Lipase Stat Lab 02/12/25 10:49 Completed Magnesium Stat Lab 02/12/25 10:49 Completed NT Pro Brain Natriuretic Pep. Stat Lab 02/12/25 10:49 Completed PT INR [Prothrombin Time INR] Stat Lab 02/12/25 10:49 Completed Troponin I Q3H Lab 02/12/25 14:00 Ordered Troponin I Q3H Lab 02/12/25 17:00 Ordered Troponin I Stat Lab 02/12/25 10:49 Completed Medical Decision Narrative: 39-year-old male presents the emergency department with abdominal pain nausea vomiting constipation, see HPI for detail past medical history, differential diagnose include but not limited to bowel obstruction, cholelithiasis, choledocholithiasis, cholecystitis, pancreatitis, diverticulitis, bowel perforation, pseudo colonic obstruction, ileus, colitis, ileitis, gastritis among others. I discussed this patient case with physician Dr. Patel Will obtain basic laboratory studies, proBNP, troponin, lactic level lipase level, magnesium level, PT/INR, EKG, chest x-ray, CT abdomen pelvis with contrast for further evaluation as characterization, will give 4 mg IV morphine for pain and 4 mg of Zofran for nausea. CBC notable for mild leukocytosis at 13.8 CMP is notable for hyperchloremia at 111, lactate within normal limits, hypercalcemia 10.7, troponin and proBNP within normal limits, Lipase in normal limits Coag within normal limits I reviewed the patient's chest x-ray along the corresponding radiologic report, no acute abnormality. I was notified by nursing staff at approximately 12:05 PM, the patient did get some relief with morphine medication, patient states he received Dilaudid , at outside hospital, which did provide some relief to his symptomatology. Will give 0.5 mg IV Dilaudid for pain. I reviewed The patient's CT abdomen pelvis with contrast along with the corresponding radiologic report, fluid-filled small bowel in a pattern suggestive of ileus or enteritis. Will obtain right upper quadrant ultrasound to the patient's right upper quadrant pain, for further evaluation of the patient's symptomatology. I reviewed the patient's right upper quadrant ultrasound along with the corresponding radiologic report, There is no evidence of biliary obstruction tiny polyp in the gallbladder wall. Reexamination of the patient at approximately 1:40 PM, patient is feeling better as far as his abdominal pain and nausea are concerned, I recommend bowel rest/bowel regimen, continue with antiemetics and pain medication as needed at home, offered to prescribe patient analgesia and antiemetics, patient states that he has these medications at home. I recommend avoidance of opioid pain medications at this time until ileus resolves, most likely viral illness/enteritis, to explain patient's ileus, patient is still having some bowel movements, no profuse vomiting today, recommend follow-up with GI physician/general surgery physician in the upcoming days/weeks, patient was given strict ED return precautions. Patient voiced understanding of the treatment plan/discharge plan. Please note this documentation may contain spelling errors and/or dictation errors that occur when using voice recognition software. <Silvia Patel, DO - Last Filed: 02/12/25 11:22> Vital Signs: 02/12/25 10:38 02/12/25 10:42 02/12/25 11:00 Pulse Rate 110 H 109 H Pulse Rate [Right Radial] 106 H Respiratory Rate 16 Blood Pressure 122/96 H 119/81 Blood Pressure [Left Arm] 122/96 H Blood Pressure Mean [Left Arm] 104 Blood Pressure Source [Left Arm] Automatic Cuff Blood Pressure Position [Left Arm] Sitting 02 Sat by Pulse Oximetry 97 99 97 Oxygen Delivery Method Room Air Room Air Room Air 02/12/25 12:01 Pulse Rate 89 Pulse Rate [Right Radial] Respiratory Rate Blood Pressure 117/80 Blood Pressure [Left Arm] Blood Pressure Mean [Left Arm] Blood Pressure Source [Left Arm] Blood Pressure Position [Left Arm] 02 Sat by Pulse Oximetry 98 Oxygen Delivery Method Room Air Lab Data Lab Results 02/12/25 10:49: WBC 13.8 H, RBC 5.32, Hgb 16.2, Hct 45.8, MCV 86.1, MCH 30.5, MCHC 35.4, RDW 13.3, Plt Count 321, MPV 9.7, Neut % (Auto) 77.4, Lymph % (Auto) 8.5 L, Lewis % (Auto) 7.1, Eos % (Auto) 6.2, Baso % (Auto) 0.6, Neut # (Auto) 10.7 H, Lymph # (Auto) 1.2, Lewis # (Auto) 1.0, Eos # (Auto) 0.9 H, Baso # (Auto) 0.1, PT 10.8, INR 0.97, Sodium 141, Potassium 4.4, Chloride 111 H, Carbon Dioxide 22, Anion Gap 12.4, BUN 10, Creatinine 0.90, Estimated Creat Clear 166, Estimated GFR 93, Est GFR ( Amer) 113, Glucose 125 H, Lactate 1.4, C alcium 10.7 H, Magnesium 2.1, Total Bilirubin 0.4, AST 31, ALT 48, Alkaline Phosphatase 73, Troponin I < 0.01, NT-Pro-B Natriuret Pep < 20.0, Total Protein 7.8, Albumin 5.1 H, Globulin 2.7, Albumin/Globulin Ratio 1.9 H, Lipase 76 Orders (Tests/Meds): ED MEDICATIONS Discontinued Medications Generic Name Dose Route Start Last Admin Trade Name Freq PRN Reason Stop Dose Admin Hydromorphone HCl 0.5 mg 02/12/25 12:09 02/12/25 12:12 Hydromorphone 2mg/Ml Syringe IV 02/12/25 12:10 0.5 mg ONCE ONE Administration Iopamidol 75 ml 02/12/25 11:40 02/12/25 11:42 Iopamidol-370 (76%);100ml Bottle IV 02/12/25 11:41 75 ml ONCE ONE Administration Morphine Sulfate 4 mg 02/12/25 11:01 02/12/25 11:06 Morphine 4mg/Ml Syringe IV 02/12/25 11:02 4 mg ONCE ONE Administration Ondansetron HCl 4 mg 02/12/25 11:01 02/12/25 11:05 Ondansetron 4mg/2ml Vial IV 02/12/25 11:02 4 mg ONCE ONE Administration Sodium Chloride 10 ml 02/12/25 11:40 02/12/25 11:41 Sodium Chloride 0.9% 10ml Syr (Rad Only) IV 02/12/25 11:41 10 ml ONCE ONE Administration ORDERS Category Date Time Status CT abdomen pelvis w con Stat Cat Scan 02/12/25 10:49 Completed US RUQ [US abdomen limited] Stat Exams 02/12/25 12:33 Completed XR chest portable Stat Exams 02/12/25 10:49 Completed Complete Blood Count Auto Diff Stat Lab 02/12/25 10:49 Completed Comprehensive Metabolic Panel Stat Lab 02/12/25 10:49 Completed Lactic Acid Stat Lab 02/12/25 10:49 Completed Lipase Stat Lab 02/12/25 10:49 Completed Magnesium Stat Lab 02/12/25 10:49 Completed NT Pro Brain Natriuretic Pep. Stat Lab 02/12/25 10:49 Completed PT INR [Prothrombin Time INR] Stat Lab 02/12/25 10:49 Completed Troponin I Q3H Lab 02/12/25 14:00 Ordered Troponin I Q3H Lab 02/12/25 17:00 Ordered Troponin I Stat Lab 02/12/25 10:49 Completed ECG Data Tracing #1: I reviewed this ECG and interpreted as documented below: Normal sinus rhythm with a ventricular rate of 97 bpm. Left axis deviation. Right bundle branch block. No acute ST changes concerning for STEMI. ECG initial impression date: 02/12/25 ECG initial impression time: 11:13 Critical Care <NIDA Rick - Last Filed: 02/12/25 13:51> Critical Care Time Critical Care Time: No
[2025-02-12] MEDS: ONDANSETRON 4MG/2ML VIAL 4 MG IV (11:05)
[2025-02-12] MEDS: MORPHINE 4MG/ML SYRINGE 4 MG IV (11:06)
[2025-02-12 11:07] LABS: Basophils # 0.1 K/mm3 (0-0.2); Basophils % 0.6 % (0.1-2.0); Eosinophils # 0.9 Kmm3 (0.0-0.4); Eosinophils % 6.2 % (0.1-12.0); Hematocrit 45.8 % (42.0-52.0); Hemoglobin 16.2 g/dL (14.1-18.0); Immature Granulocytes # 0.03 10^3uL; Immature Granulocytes % 0.2 %; Lymphocytes # 1.2 K/mm3 (0.7-4.5); Lymphocytes % 8.5 % (10-50); Mean Corpuscular HGB Conc 35.4 g/dL (31.8-35.4); Mean Corpuscular Hemoglobin 30.5 pg (27.0-31.2); Mean Corpuscular Volume 86.1 fl (80-94); Mean Platelet Volume 9.7 fl (7.4-10.4); Monocytes % 7.1 % (1.7-9.3); Neutrophils # 10.7 K/mm3 (1.8-7.8); Neutrophils % 77.4 % (37.0-80.0); Nucleated Red Blood Cells # 0 10^3/uL; Nucleated Red Blood Cells % 0 %; Platelet Count 321 K/mm3 (142-424); Red Blood Count 5.32 M/mm3 (4.60-6.20); Red Cell Distribution Width 13.3 % (11.5-17.5); Red Cell Distribution Width-SD 41.1 fL; White Blood Count 13.8 K/mm3 (4.8-10.8)
--- NOTE | 2025-02-12 11:10 | ECG_ITS ---
APPROVED REPORT Exam: Resting ECG HR:97 bpm ECG Measurements Heart Rate 97 AXES WV 157 P 67 QRSd 126 QRS -38 QT 347 T 49 QTc 402 Conclusion SINUS RHYTHM LEFT AXIS DEVIATION [QRS AXIS < -30] RIGHT BUNDLE BRANCH BLOCK [120+ ms QRS DURATION, UPRIGHT V1, 40+ ms S IN I/aVL/V4/V5/V6] No STEMI Electronically signed by : APRIL GARZA, 02/13/2025 02:57:47
[2025-02-12 11:13] LABS: Albumin Level 5.1 g/dl (3.5-5.0); Chloride 111 mmol/L (98-107); Potassium 4.4 mmoL/L (3.5-5.1); Sodium 141 mmol/L (136-145)
[2025-02-12 11:15] LABS: Lactic Acid 1.4 mmol/L (0.7-2.1)
[2025-02-12 11:16] LABS: Alanine Aminotransferase 48 U/L (12-78); Albumin/Globulin Ratio 1.9 (1.1-1.8); Alkaline Phosphatase 73 U/L (38-126); Anion Gap 12.4 mEq/L (5-15); Aspartate Amino Transferase 31 U/L (17-59); Bilirubin,Total 0.4 mg/dl (0.2-1.3); Blood Urea Nitrogen 10 mg/dl (9-20); Calcium 10.7 mg/dl (8.4-10.2); Carbon Dioxide 22 mmol/L (22.0-30.0); Creatinine Clearance Estimated 166 mL/min (50-200); Estimated Glomerular Filt Rate 93 ml/min (>60); GFR (African American) 113 ML/MIN (>60); Globulin 2.7 g/dL (1.3-3.2); Glucose 125 mg/dl (74-100); Total Protein,Serum 7.8 g/dl (6.3-8.2)
[2025-02-12 11:17] LABS: Lipase 76 U/L (23-300); Magnesium 2.1 mg/dl (1.6-2.3)
[2025-02-12 11:20] LABS: INR 0.97 (0.9-1.1); Prothrombin Time 10.8 seconds (10.1-12.5)
[2025-02-12 11:26] LABS: NT Pro Brain Natriuretic Pep. < 20.0 pg/mL (0-125)
[2025-02-12 11:29] LABS: Troponin I < 0.01 ng/ml (0.00-0.034)
[2025-02-12] MEDS: SODIUM CHLORIDE 0.9% 10ML SYR (RAD ONLY) 10 ML IV (11:41)
[2025-02-12] MEDS: IOPAMIDOL-370 (76%);100ML BOTTLE 75 ML IV (11:42)
[2025-02-12 12:01] VITALS: BP 117/80; PULSE 89; O2SAT 98
[2025-02-12] MEDS: HYDROMORPHONE 2MG/ML SYRINGE 0.5 MG IV (12:12)
--- NOTE | 2025-02-12 12:33 | US_ITS ---
FINAL REPORT TECHNIQUE: Multiple transverse and longitudinal images CLINICAL HISTORY: RUQ pain hx of ileus FINDINGS: There is a 3 mm or less polyp in the posterior gallbladder wall. The gallbladder is otherwise unremarkable. No biliary ductal dilatation is appreciated. No fluid collections are seen. Limited portions of the right liver are unremarkable. Limited portions of the right kidney are unremarkable. IMPRESSION: No evidence of biliary obstruction. Tiny polyp in the gallbladder wall. Reviewed, Interpreted and Dictated by Epifanio Stone MD Transcribed by Fannie Aguilera Authenticated and [facility]
[2025-02-12 14:03] VITALS: BP 121/60; PULSE 80; RESP 16; TEMP 36.8
== END 2025-02-12 14:02 | disposition home or self-care (01) ==
PROVIDERS: Physician Assistant; Emergency Provider Emergency Medicine; PCP Physician Assistant
DX: R10.11 Right upper quadrant pain (principal); R10.13 Epigastric pain; K56.7 Ileus, unspecified; I45.10 Unspecified right bundle-branch block; R11.0 Nausea; R53.1 Weakness; F17.290 Nicotine dependence, other tobacco product, uncomplicated
CPT/HCPCS: 71045; 74177; 76705; 80053; 83605; 83690; 83735; 83880; 84484; 85025; 85610; 93005; 96374; 96375; 99285; J1171; J2270; J2405; Q9967